=== PATIENT | female | born 1970 | race American Indian/Alaskan Native ===

== ENCOUNTER 2017-10-23 13:49 | Outpatient (CLI) | payer BC ==
--- NOTE | 2017-10-23 22:38 | XRay Report ---
FINAL REPORT PROCEDURE: XR KNEE BILAT 4+V TECHNIQUE: Bilateral knee radiographs, AP, lateral and sunrise views. CPT 46780 HISTORY: BILAT KNEE PAIN COMPARISON: No prior studies are available for comparison. FINDINGS: Fracture (s) and/or Dislocation(s): None . Alignment: Normal . Joint space(s): Normal . Soft tissues: Normal . Bone mineralization: Normal . Foreign bodies: None . IMPRESSION: Normal Examination.
== END 2017-10-23 13:50 | disposition home or self-care (01) ==
LOC: SPVIMAG 13:49
PROVIDERS: ATTEND Orthopaedic Surgery
DX: M25.561 Pain in right knee (principal)